=== PATIENT | female | born 1955 | race Caucasian/White ===

== ENCOUNTER 2017-09-10 15:58 | Emergency (ER) | payer BC ==
[~2017-09-10] VITALS: Ht 165.1 cm; Wt 94.9 kg
[~2017-09-10 15:58] MED LIST: AZITHROMYCIN250 MG PO; BENZONATATE200 MG PO; HYDROCHLOROTHIA25 MG PO; NASONEX17 GM BOTH NARES; PHENERGAN-CODE120 ML PO; PROAIR HFA8.5 GM IH; SIMVASTATIN40 MG PO; TOPROL XL100 MG PO; ZYRTEC10 M3 PO
[2017-09-10 16:53] LABS: HEMATOCRIT 38.6 % (36.0-46.0); MCH 29.5 PG (29.0-34.0); MCHC 32.6 G/DL (30.0-36.0); MCV 90.4 FL (83-99); MEAN PLAT.VOLUME 10.7 uM^3 (9.5-12.4); PLATELET COUNT 193 K/uL (156-360); RBC DIS.WIDTH-CV 13.3 % (11.8-14.6); RBC DIS.WIDTH-SD 44.1 % (39-53); RED BLOOD COUNT 4.27 M/uL (3.80-5.20); WHITE BLOOD COUNT 8.6 K/uL (4.1-10.2)
[2017-09-10 17:01] LABS: CHLORIDE 102 mEq/L (99-109); POTASSIUM 3.6 mEq/L (3.7-5.4); SODIUM 139 mEq/L (136-147)
[2017-09-10 17:03] LABS: GLUCOSE 107 mg/dL (70-99)
[2017-09-10 17:04] LABS: ANION GAP 8 MEQ/L (2-14)
[2017-09-10 17:07] LABS: GFR ESTIMATE (CALCULATED) > 59 mL/min/
[2017-09-10 17:08] LABS: INTER. NORMALIZED RATIO 1.1; PROTHROMBIN TIME 12.3 SEC (10.2-12.9); UREA NITROGEN (BUN) 15 mg/dL (9-23)
[2017-09-10] MEDS ORDERED: PREDNISONE20 MG PO (20:21)
[2017-09-10] MEDS ORDERED: VALTREX1000 MG PO (20:21)
[2017-09-10 21:09] VITALS: BP 145/81
[2017-09-11 08:46] LABS: LYME DISEASE SEROLOGY SCREEN NEGATIVE (NEGATIVE)
== END 2017-09-10 21:12 | disposition home or self-care (01) ==
LOC: EME 15:58
PROVIDERS: Emergency Medicine
DX: G51.0 Bell's palsy (principal); M79.7 Fibromyalgia; M32.9 Systemic lupus erythematosus, unspecified; J45.909 Unspecified asthma, uncomplicated; I10 Essential (primary) hypertension; E78.5 Hyperlipidemia, unspecified; E11.9 Type 2 diabetes mellitus without complications; Z91.040 Latex allergy status
CPT/HCPCS: 70544; 70551; 71020; 80048; 85027; 85610; 86618; 93005; 99281; 99285; J1200; J7030; J7512